=== PATIENT | female | born 1940 | race Caucasian/White ===

== ENCOUNTER 2016-10-27 11:23 | Outpatient (CLI) | payer MEDICARE, OTHER ==
[2016-02-05 22:56] VITALS: BP 132/48
== END 2016-10-27 11:24 ==
LOC: LAB 11:23
PROVIDERS: ATTEND Family Medicine
DX: K59.01 Slow transit constipation (principal)
CPT/HCPCS: 36415; 84443

== ENCOUNTER 2017-03-22 14:32 | Outpatient (CLI) | payer MEDICARE, OTHER ==
[2016-02-05 22:56] VITALS: BP 132/48
--- NOTE | 2017-03-22 15:09 | Diagnostic Imaging Report ---
ROLF MONDRAGON [facility] [address] [facility] [address] [id number] Report Submission Date: Mar 22, 2017 3:06:52 PM CDT Patient Study Name: SCHUYLER OMALLEY Date: Mar 22, 2017 2:37:15 PM CDT Modality Type: CR Gender: F Description: SHOULDER : 44 Institution: [facility] Physician: ROLF MONDRAGON Examination: Plain film shoulder History: Fall Comparison exams: None provided Findings: 3 views of the shoulder demonstrate normal mineralization. Fracture involving the distal tip of the clavicle. No widening of the acromioclavicular space. Humeral head is without abnormality. No glenoid abnormality. No soft tissue abnormality Impression: Fracture of the distal clavicle tip: chronicity indeterminate without older exams. No shoulder dislocation. Correlate with mechanism of injury. Electronically signed on Mar 22, 2017 3:06:52 PM CDT by: Vance POWELL
== END 2017-03-22 14:33 ==
LOC: RAD 14:32
PROVIDERS: ATTEND Family Medicine
DX: G89.29 Other chronic pain (principal); M25.511 Pain in right shoulder
CPT/HCPCS: 73030

== ENCOUNTER 2018-12-27 13:28 | Outpatient (CLI) | payer MEDICARE, OTHER ==
[2016-02-05 22:56] VITALS: BP 132/48
[2019-01-04 08:04] LABS: MEAN CORPUSCULAR HEMOGLOBIN 29.1 pg (28.0-34.0); MONOCYTES % 7.5 % (0.0-11.0); eGFR (Non-African) > 60
[2019-01-04 08:05] LABS: BASOPHILS % 0.6 % (0.0-1.5); EOSINOPHILS % 2.3 % (0.0-6.8); NEUTROPHILS # 5.9 # k/uL (1.4-7.7)
== END 2018-12-27 13:33 | disposition home or self-care (01) ==
LOC: LAB 13:28
PROVIDERS: ATTEND Family Medicine
DX: R59.0 Localized enlarged lymph nodes (principal)
CPT/HCPCS: 36415; 80053; 85025

== ENCOUNTER 2018-12-28 07:30 | Outpatient (CLI) | payer MEDICARE, OTHER ==
[2016-02-05 22:56] VITALS: BP 132/48
== END 2018-12-28 07:35 | disposition home or self-care (01) ==
LOC: RAD 07:30
PROVIDERS: ATTEND Family Medicine
DX: R22.1 Localized swelling, mass and lump, neck (principal)
CPT/HCPCS: 70491